=== PATIENT | female | born 1955 | race Caucasian/White ===

== ENCOUNTER 2017-09-29 13:38 | Emergency (ER) | payer BC ==
[~2017-09-29] VITALS: Ht 167.6 cm; Wt 86.5 kg
[2017-09-29 13:42] VITALS: BP 153/83
[2017-09-29] MEDS ORDERED: LORazepam 1MG TABLET PO ONE (14:00)
[2017-09-29] MEDS ORDERED: HYDROcodone/APAP 5/325 TABLET ONE (14:38)
[2017-09-29] MEDS ORDERED: KETOROLAC 30 MG/1 ML ONE ×2 (14:44→14:48)
[2017-09-29] MEDS ORDERED: KETOROLAC 30 MG/1 ML IM ONE (15:00)
[2017-09-29] MEDS ORDERED: HYDROcodone/APAP 5/325 TABLET PO ONE (15:00)
== END 2017-09-29 15:44 | disposition home or self-care (01) ==
LOC: ED 14:56
DX: S30.0XXA Contusion of lower back and pelvis, initial encounter (principal); M51.36 Other intervertebral disc degeneration, lumbar region; M54.2 Cervicalgia; S09.90XA Unspecified injury of head, initial encounter; W01.0XXA Fall on same level from slipping, tripping and stumbling without subsequent striking against object, initial encounter; Y93.89 Activity, other specified; Y92.89 Other specified places as the place of occurrence of the external cause; Y99.8 Other external cause status
CPT/HCPCS: 70450; 72125; 72131; 96372; 99284; J1885

== ENCOUNTER 2021-01-28 10:01 | Outpatient (CLI) | payer MEDICARE | END 2021-01-28 23:59 | disposition home or self-care (01) | LOC: CFH 10:01 | PROVIDERS: ATTEND Family Medicine | DX: M85.88 Other specified disorders of bone density and structure, other site (principal); N95.8 Other specified menopausal and perimenopausal disorders | CPT/HCPCS: 77080 ==